=== PATIENT | male | born 1960 | race Caucasian/White ===

== ENCOUNTER 2018-12-03 06:27 | Day surgery (SDC) | payer OTHER ==
[~2018-12-03] VITALS: Ht 182.9 cm; Wt 99.0 kg
[2018-12-03 07:04] VITALS: BMI 34.5
[2018-12-03] MEDS ORDERED: ASPI-817 PO (07:15)
[2018-12-03] MEDS ORDERED: MECL-77 PO (07:15)
[2018-12-03] MEDS ORDERED: SERT50TA6 PO (07:15)
[2018-12-03] MEDS ORDERED: LOSA1TAB28 PO (07:15)
[2018-12-03] MEDS ORDERED: SIMV20TA2 PO (07:15)
[2018-12-03] MEDS ORDERED: MELO7.5O PO (07:15)
[2018-12-03] MEDS ORDERED: METF500T24 PO (07:15)
[2018-12-03] MEDS ORDERED: TRAZ-111 PO (07:15)
[2018-12-03 07:34] VITALS: Ht 182.9 cm; Wt 99.0 kg
[2018-12-03] MEDS ORDERED: ASPI-903 PO (07:51)
[2018-12-03] MEDS ORDERED: [UNRECOGNIZED DRUG - OTHER] (07:51)
[2018-12-03] MEDS ORDERED: OMEG1CAP2 PO (07:51)
[2018-12-03] MEDS ORDERED: UBID100C24 PO (07:51)
[2018-12-03] MEDS ORDERED: TAMS-14 PO (07:51)
[2018-12-03] MEDS ORDERED: LACT1CAP49 PO (07:51)
--- NOTE | 2018-12-03 08:07 | PREAC ---
Date/Time of Note Date/Time of Note DATE: 12/03/18 TIME: 08:06 Anesthesia Eval and Record Evaluation Time Pre-Procedure Interview DATE: 12/03/18 TIME: 08:06 Age 58 Sex male NPO: 8 hrs Preoperative diagnosis screening Planned procedure colonoscopy Past Medical History Past Medical History: Includes Cardio: HTN Pulm: Sleep Apnea, Home CPAP GI: GERD, Obesity Surgery & Anesthesia Issues No known issue Meds Anticoagulation: No Beta Rey within 24 hr: No Reason Beta Rey not given: Pt. not on B-Rey Reported Medications Tamsulosin Hcl* (Flomax*) 0.4 Mg Cap.er.24h, 0.4 MG PO HS, CAP 12/03/18 [Superbeta Daily] No Conflict Check 12/03/18 Lactobacillus Combination No.4 (Probiotic) 1 Each Capsule, 1 CAP PO DAILY, CAP 12/03/18 [place]-3 Acid Ethyl Esters (Lovaza) 1 Gm Capsule, 4 GM PO DAILY, CAP 12/03/18 Ubidecarenone (Coq-10) 100 Mg Capsule, 200 MG PO, CAP 12/03/18 Aspirin* (Aspirin* Chew) 81 Mg Tab.chew, 81 MG PO DAILY, TAB.CHEW 12/03/18 Discontinued Reported Medications Meloxicam* (Meloxicam*) 7.5 Mg/5 Ml Oral.susp, 15 MG PO DAILY, #300 ML 12/03/18 Aspirin* (Aspirin* EC) 81 Mg Tablet.dr, 81 MG PO DAILY, TAB 12/03/18 Losartan-Hydrochlorothiazide (Losartan-HCTZ) 100-12.5 Mg Tab, 1 TAB PO DAILY, TAB 12/03/18 Simvastatin (Simvastatin) 20 Mg Tablet, 20 MG PO QHS, #30 TAB 12/03/18 Meclizine Hcl* (Meclizine Hcl*) 25 Mg Tablet, 25 MG PO Q8H PRN for DIZZINESS, TAB 12/03/18 Metformin Hcl* (Metformin Hcl*) 500 Mg Tablet, 500 MG PO BID, #90 TAB 12/03/18 Trazodone Hcl* (Trazodone Hcl*) 50 Mg Tablet, 50 MG PO QHS, #30 TAB 12/03/18 Sertraline Hcl* (Sertraline Hcl*) 50 Mg Tablet, 50 MG PO DAILY, #30 TAB 12/03/18 Meds reviewed: Yes Allergies Coded Allergies: No Known Allergy (Unverified , 12/03/18) Allergies Reviewed: Yes Labs/Studies Labs Reviewed: Reviewed by anesthesiologist test: N/A Pre-procedure Exam Airway: Adequate mouth opening, Adequate thyromental dist Mallampati: Mallampati II Teeth: Normal Lung: Normal Heart: Normal ASA Physical Status ASA physical status: 3 Emergency: None Planned Anesthetic General/MAC: Mask, MAC Pre-operative Attestations Prior to commencing anesthesia and surgery, the patient was re-evaluated, there was verification of: *The patient's identity *The results of appropriate recent lab work and preoperative vital signs *The above evaluation not changing prior to induction *Anesthetic plan, risk benefits, alternative and complications discussed with patient/family; questions answered; patient/family understands, accepts and wishes to proceed. EZRA RODRIGUEZ Dec 03, 2018 08:07
[2018-12-03 08:10] VITALS: BP 153/81; PULSE 48; RESP 19
[2018-12-03] MEDS ORDERED: FENTAnyl 50 MCG/ML VIAL IV PRN (08:30)
[2018-12-03] MEDS ORDERED: PROPOFOL 40 ML ONE (09:04)
[2018-12-03 09:50] VITALS: BP 140/73; PULSE 52; RESP 16
--- NOTE | 2018-12-04 08:16 | PAC ---
Date/Time of Note Date/Time of Note DATE: 12/04/18 TIME: 08:16 Post-Anesthesia Notes Post-Anesthesia Note Last documented vital signs Vital Signs Date Temp Pulse Resp B/P (MAP) Pulse Ox O2 O2 Flow FiO2 Time Delivery Rate 12/03/18 52 16 140/73 95 Room Air 09:50 (95) 12/03/18 96.6 08:10 Activity: WNL Respiratory function: WNL Cardiovascular function: WNL Mental status: Baseline Pain reasonably controlled: Yes Hydration appropriate: Yes Nausea/Vomiting absent: Yes EZRA RODRIGUEZ Dec 04, 2018 08:16
== END 2018-12-03 13:02 | disposition home or self-care (01) ==
LOC: GIL 06:27
PROVIDERS: ATTEND Internal Medicine Gastroenterology
DX: Z12.11 Encounter for screening for malignant neoplasm of colon (principal); D12.8 Benign neoplasm of rectum; K57.30 Diverticulosis of large intestine without perforation or abscess without bleeding; K64.4 Residual hemorrhoidal skin tags; I10 Essential (primary) hypertension
CPT/HCPCS: 45385; 88305; Z7610